=== PATIENT | female | born 1985 | race Caucasian/White ===

== ENCOUNTER → 2016-12-05 | Outpatient (CLI) | payer OTHER ==
[~2016-12-05] MED LIST: ACET650T10 PO; GLYB2.5T3 PO; IBUP-232 PO; PERC5TAB12 PO; PREN0.01 PO; ZANTTAB11 PO
== END ==
LOC: HPND 13:07
PROVIDERS: ATTEND Obstetrics & Gynecology
DX: O35.1XX0 Maternal care for (suspected) chromosomal abnormality in fetus, not applicable or unspecified (principal)
CPT/HCPCS: 76811

== ENCOUNTER 2017-03-05 10:25 | Inpatient (IN) | payer OTHER ==
[~2017-03-05] VITALS: Ht 177.8 cm; Wt 117.9 kg
[2017-03-05] VITALS (21 sets, daily range): BP systolic 110–141; BP diastolic 63–92; PULSE 68–128; RESP 18; TEMP 97.9–98.4
[~2017-03-05 10:25] MED LIST changes: -GLYB2.5T3 PO; -IBUP-232 PO; -ZANTTAB11 PO
[2017-03-05] MEDS ORDERED: LACTATED RINGER'S 1000 ML INJ 1,000 ML IV SCH (11:26)
[2017-03-05] MEDS ORDERED: LACTATED RINGER'S 1000 ML INJ 1,000 ML IV PRN (11:26)
--- NOTE | 2017-03-05 11:26 | PD ---
HPI Chief Complaint leakage of clear fluid at 10:10a Date Seen: Mar 05, 2017 Travel History International Travel<30 Days: No Contact w/Intl Traveler<30Days: No Known Affected Area: No History of Present Illness HPI This is a 31y/o at 38w1d who presented to the [facility] with reports of leakage of clear fluid at 10:10a. Her contraction have increased in intensity at that time. She denies vaginal bleeding with reports of active movements. Her plan is to not have an epidural as she has not had one with her last [address] Sal, care complicated by: 1.GBS + 2. H/o marijuana + noted on her records. 3. GDMA2, on glyburide 2.5mg qhs. Fingersticks: fasting 90-94, 2 hr pp: 107- 118. Para: 2 : 3 History Past Medical History Medical History: Denies Significant Hx Obstetric History Obstetric History 08/02/11 40+ w c/o GDMA, Male 8lb9oz "Curry" 08/09/14 39w4d Male 8lb1oz "Neeko" Past Surgical History Narrative Surgical Tonsillectomy age 4 Family History Family History: Negative Social History Alcohol Use: No Tobacco Use: No Substance Abuse: No Allergies-Medications (Allergen,Severity, Reaction): Coded Allergies: No Known Allergies (Verified , 11/05/13) Home Meds Active Scripts Oxycodone-Acetaminophen 5-325 mg (Percocet 5-325 mg)Oxycodone 5/325 Acetaminophen Tab1-2 Tab PO Q6H PRN (PAIN GREATER THAN 5) #20 TAB Ref 0 Prov:Duy Triana MD 08/11/14 Reported Medications Acetaminophen (Acetaminophen Er)650 Mg Lbs416 Mg PO Q4H PRN (PAIN SCALE 3 TO 5) 08/09/14 Multivit/Min/Fol Ac/Iron/Pren ( Vit ( Plus)) Tab1 Tab PO DAILY 07/23/11 Review of Systems Except as stated in HPI: all other systems reviewed are Neg Physical Exam Narrative GENERAL: Well-nourished, well-developed patient. SKIN: Warm and dry. HEAD: Normocephalic and atraumatic. EYES: No scleral icterus. No injection or drainage. ENT: No nasal drainage noted. Mucous membranes pink. Airway patent. NECK: Supple, trachea midline. No JVD. CARDIOVASCULAR: Regular rate and rhythm without murmurs, gallops, or rubs. RESPIRATORY: Breath sounds equal bilaterally. No accessory muscle use. BREASTS: Bilateral exam showed no masses , no retractions, no nipple discharge. ABDOMEN/GI: Abdomen soft, non-tender, bowel sounds present, no rebound, no guarding Gravid to 38 weeks size GENITOURINARY: External Genitalia: intact and normal in appearance VE: 60/-1 Presentation: cephalic Membranes: ruptured but + forebag Uterine Contractions: q 2-3 minutes apart FHT's: Category: 1, reactive/reassuring EXTREMITIES: No cyanosis or edema. BACK: Nontender without obvious deformity. No CVA tenderness. NEUROLOGICAL: Awake and alert. Motor and sensory grossly within normal limits. Five out of 5 muscle strength in all muscle groups. Normal speech. Data Data Vital Signs Reviewed: Yes Orders Ob (2e) Additional Admit Info (03/05/17 11:07) MDM Medical Record Reviewed: Yes Narrative Course / MDM 31y/o at 38w1d with SROM, GBS + -reassuring status Plan -admit for delivery -PCN -utox -d/w Jonelle aware of admission Diagnosis Diagnosis: Primary Impression: 38 weeks gestation of Additional Impression: Rupture of membranes with clear amniotic fluid Cathy Trujillo MD Mar 05, 2017 11:26
[2017-03-05] MEDS ORDERED: LIDOCAINE HCL 1% 50 ML VIAL I-DERMAL PRN (11:30)
[2017-03-05] MEDS ORDERED: LIDOCAINE HCL 1% 50 ML VIAL INFIL PRN (11:30)
[2017-03-05] MEDS ORDERED: OXYTOCIN 30 UNITS-500ML PREMIX 500 ML IV ONE (11:30)
[2017-03-05] MEDS ORDERED: CITRIC ACID-SODIUM CITRATE LIQ 30 ML UDC PO SCH (11:30)
[2017-03-05] MEDS ORDERED: PENICILLIN G POTASSIUM INJ 5,000,000 UNITS in SODIUM CHLORIDE 0.9% INJ 100 ML IV ONE (11:30)
[2017-03-05] MEDS ORDERED: MINERAL OIL 10 ML VIAL TOPICAL PRN (11:30)
[2017-03-05] MEDS ORDERED: OXYTOCIN 30 UNITS-500ML PREMIX 500 ML IV SCH (11:30)
[2017-03-05] MEDS ORDERED: SODIUM CHLORID 0.9% 500 ML INJ 500 ML IV PRN (11:30)
[2017-03-05] MEDS ORDERED: SODIUM CHLOR 0.9% 1000 ML INJ 1,000 ML IV PRN (11:46)
[2017-03-05 12:06] LABS: AUTOMATED NEUTROPHIL # 7.9 TH/MM3 (1.8-7.7); BASOPHIL % 0.2 % (0.0-2.0); EOSINOPHIL # 0.1 TH/MM3 (0-0.4); EOSINOPHIL % 0.5 % (0.0-4.0); HEMO FLAGS DIFF FINAL; LYMPH % 25.2 % (9.0-44.0); MEAN CELL VOLUME 85.9 FL (80.0-100.0); MEAN CORPUSCULAR HEMOGLOBIN 28.1 PG (27.0-34.0); MEAN CORPUSCULAR HGB CONC 32.7 % (32.0-36.0); MONO % 7.6 % (0.0-8.0); NEUT % 66.5 % (16.0-70.0); PLATELET COUNT 183 TH/MM3 (150-450); RED BLOOD COUNT 4.07 MIL/MM3 (4.00-5.30); RED CELL DISTRIBUTION WIDTH 14.6 % (11.6-17.2); WHITE BLOOD COUNT 11.9 TH/MM3 (4.0-11.0)
[2017-03-05 12:17] LABS: BLOOD, URINE SMALL (NEG); CALCIUM OXALATE CRYSTALS,URINE RARE /hpf; COMMENT (UR) CULT NOT INDICATED; CULTURE IF INDICATED CULT NOT INDICATED; GLUCOSE,URINE NEG (NEG); KETONE, URINE NEG (NEG); MUCUS URINE FEW /lpf (OCC); NITRITE,URINE NEG (NEG); SQUAMOUS EPITHELIAL CELL URINE 2 /hpf (0-5); URINE COLOR YELLOW (YELLW/STRAW)
[2017-03-05 12:27] LABS: AMPHETAMINE, URINE NEG (NEG); BARBITURATES, URINE NEG (NEG); COCAINE, URINE NEG (NEG)
[2017-03-05] MEDS ORDERED: GLYB2.5T3 PO (12:59)
[2017-03-05] MEDS ORDERED: ZANTTAB11 PO (13:00)
--- NOTE | 2017-03-05 15:06 | PD.OB.DELI ---
Delivery Date: Mar 05, 2017 Anesthesia: None Episiotomy: None Vaginal Delivery: Normal Presentation: Occiput anterior, Vertex Nuchal Cord: None Delayed cord clamping (45 sec): Yes : Male One Minute : 9 Five Minute : 9 Weight: 7#14oz Placenta: Spontaneous delivery, Intact, 3 vessel cord Laceration: Vaginal laceration, 2 deg Repair: Chromic running Additional Information EBL 200 mL Aysha Sal MD Mar 05, 2017 15:06
[2017-03-05] MEDS ORDERED: ZOLPIDEM TARTRATE 5 MG TAB PO PRN (15:15)
[2017-03-05] MEDS ORDERED: ONDANSETRON ODT 4 MG TAB PO PRN (15:15)
[2017-03-05] MEDS ORDERED: DOCUSATE SODIUM 50 MG/SENNA 8.6 MG TAB PO PRN (15:15)
[2017-03-05] MEDS ORDERED: SODIUM CHLORIDE 0.9% FLUSH 10 ML FLUSH IV FLUSH PRN (15:15)
[2017-03-05] MEDS ORDERED: ALUMINUM/MAGNESIUM/SIMETH 30 ML CUP PO PRN (15:15)
[2017-03-05] MEDS ORDERED: oxyCODONE/ACETAMINOPHEN 5 MG/325 MG TAB PO PRN ×2 (15:15)
[2017-03-05] MEDS ORDERED: PENICILLIN G POTASSIUM INJ 2,500,000 UNITS in SODIUM CHLORIDE 0.9% INJ 100 ML IV SCH (15:30)
[2017-03-05] MEDS: ACETAMINOPHEN 325 MG TAB PO PRN (15:49)
[2017-03-05] MEDS ORDERED: MEASLES, MUMPS, RUBELLA VACCINE 0.5 ML VIAL SQ ONE (16:00)
[2017-03-05] MEDS ORDERED: DIPHTH/TETANUS/ACEL PERTUSSIS (BOOSTER) 0.5 ML VIAL/PFS IM ONE (16:00)
[2017-03-05] MEDS: BENZOCAINE 20% TOPICAL SPRAY 60 ML CAN TOPICAL PRN (16:43)
[2017-03-05] MEDS: WITCH HAZEL 50%/GLYCERIN 12.5% 40 PAD JAR TOPICAL PRN (16:43)
[2017-03-05] MEDS: IBUPROFEN 600 MG TAB PO PRN (20:41)
[2017-03-05] MEDS: SODIUM CHLORIDE 0.9% FLUSH 10 ML FLUSH IV FLUSH SCH (20:42)
[2017-03-06] MEDS: IBUPROFEN 600 MG TAB PO PRN ×2 (05:29→17:32)
[2017-03-06 08:40] VITALS: BP 110/70; PULSE 70; RESP 16; TEMP 98.3
--- NOTE | 2017-03-06 09:47 | HHI.OB ---
Subjective Post Day: 1 Remarks Doing well with nursing plans to have child circumcised at resident clinic minimal cramping Objective Vitals/I&O Vital Signs Date Time Temp Pulse Resp B/P Pulse Ox O2 Delivery O2 Flow Rate FiO2 03/05/17 20:18 98.4 78 18 119/70 03/05/17 16:34 98.3 72 18 117/76 03/05/17 16:20 98.0 18 03/05/17 16:15 128 113/86 03/05/17 16:05 18 03/05/17 16:01 83 122/81 03/05/17 15:57 83 122/78 03/05/17 15:31 18 03/05/17 15:30 92 124/73 03/05/17 15:30 18 03/05/17 15:15 93 126/80 03/05/17 15:00 91 138/86 03/05/17 14:57 93 141/92 03/05/17 14:56 18 03/05/17 14:55 98.4 03/05/17 14:30 88 125/83 03/05/17 14:00 73 137/76 03/05/17 13:51 68 131/72 03/05/17 13:00 71 110/64 03/05/17 13:00 97.9 18 03/05/17 12:54 73 113/63 03/05/17 11:54 18 03/05/17 11:52 82 131/84 Objective Remarks GENERAL: Well-nourished, well-developed patient. CARDIOVASCULAR: Regular rate and rhythm without murmurs, gallops, or rubs. RESPIRATORY: Breath sounds equal bilaterally. No accessory muscle use. ABDOMEN/GI: Abdomen soft, non-tender. Fundus: Firm, non-tender at umbilicus. GENITOURINARY: Light to moderate bleeding. EXTREMITIES: No cyanosis or edema, non-tender, without signs of DVT. Medications and IVs Current Medications Medications (Trade) Dose Ordered Sig/Adela Route Start Time Stop Time Status Last Admin (NS Flush) 2 ml BID IV FLUSH 03/05/17 21:00 03/05/17 20:42 (NS Flush) 2 ml UNSCH PRN IV FLUSH 03/05/17 15:15 (Tylenol) 650 mg Q4H PRN PO 03/05/17 15:15 6/21/17 15:49 (Motrin) 600 mg Q6H PRN PO 03/05/17 15:15 03/06/17 05:29 (Percocet 5-325 Mg) 1 tab Q4H PRN PO 03/05/17 15:15 (Percocet 5-325 Mg) 2 tab Q4H PRN PO 03/05/17 15:15 (Americaine 20% Top Spr) 1 spray Q4H PRN TOPICAL 03/05/17 15:15 03/05/17 16:43 (Tucks Pads) 1 applic QID PRN TOPICAL 03/05/17 15:15 03/05/17 16:43 (Opal-Colace) 2 tab Q12H PRN PO 03/05/17 15:15 03/05/17 20:41 (Ambien) 5 mg HS PRN PO 03/05/17 15:15 (Mag-Al Plus Susp Liq) 15 ml Q8H PRN PO 03/05/17 15:15 (Zofran Odt) 4 mg Q6H PRN PO 03/05/17 15:15 Assessment/Plan Assessment and Plan Doing well PPD 1 Discharge Planning plan for discharge in am Friday Karen Urbina MD Mar 06, 2017 09:47
[2017-03-06] MEDS: ACETAMINOPHEN 325 MG TAB PO PRN (17:32)
[2017-03-06 20:20] VITALS: BP 122/82; PULSE 78; RESP 16
[2017-03-06] MEDS: SODIUM CHLORIDE 0.9% FLUSH 10 ML FLUSH IV FLUSH SCH (20:54)
[2017-03-07] MEDS: ACETAMINOPHEN 325 MG TAB PO PRN ×2 (04:42→08:55)
[2017-03-07] MEDS: SODIUM CHLORIDE 0.9% FLUSH 10 ML FLUSH IV FLUSH SCH (07:00)
--- NOTE | 2017-03-07 08:01 | HHI.DCPOC ---
Discharge Care Plan Diagnosis: (1) Vaginal delivery Your Health Problems Are: Vaginal delivery Report Symptoms to Your Doctor -Temperature above 100.5 degrees -Redness, of incision or excessive or foul smelling drainage -Unusual pain or calf pain -Increased vaginal bleeding -Painful or difficulty urinating -Feelings of extreme sadness or anxiety after 2 weeks Goals to Promote Your Health * To prevent worsening of your condition and complications * To maintain your health at the optimal level Directions to Meet Your Goals Take your medications as prescribed Follow your dietary instruction Follow activity as directed Ensure plenty of rest for recovery Drink fluids for hydration Keep your appointments as scheduled Take your immunizations and boosters as scheduled If your symptoms worsen call your PCP, if no PCP go to Urgent Care Center or Emergency Room Smoking is Dangerous to Your Health. Avoid second hand smoke Call the 24-hour crisis hotline for domestic abuse at Nikia Shore MD Mar 07, 2017 08:01
--- NOTE | 2017-03-07 08:01 | HHI.OB ---
Subjective Post Day: 2 Remarks doing well Objective Vitals/I&O Vital Signs Date Time Temp Pulse Resp B/P Pulse Ox O2 Delivery O2 Flow Rate FiO2 03/06/17 20:20 78 16 122/82 03/06/17 08:40 98.3 70 16 110/70 Objective Remarks GENERAL: Well-nourished, well-developed patient. CARDIOVASCULAR: Regular rate and rhythm without murmurs, gallops, or rubs. RESPIRATORY: Breath sounds equal bilaterally. No accessory muscle use. ABDOMEN/GI: Abdomen soft, non-tender. Fundus: Firm, non-tender at umbilicus. GENITOURINARY: Light to moderate bleeding. EXTREMITIES: No cyanosis or edema, non-tender, without signs of DVT. Medications and IVs Current Medications Medications (Trade) Dose Ordered Sig/Adela Route Start Time Stop Time Status Last Admin (NS Flush) 2 ml BID IV FLUSH 03/05/17 21:00 03/05/17 20:42 (NS Flush) 2 ml UNSCH PRN IV FLUSH 03/05/17 15:15 (Tylenol) 650 mg Q4H PRN PO 03/05/17 15:15 03/07/17 04:42 (Motrin) 600 mg Q6H PRN PO 03/05/17 15:15 03/06/17 17:32 (Percocet 5-325 Mg) 1 tab Q4H PRN PO 03/05/17 15:15 (Percocet 5-325 Mg) 2 tab Q4H PRN PO 03/05/17 15:15 (Americaine 20% Top Spr) 1 spray Q4H PRN TOPICAL 03/05/17 15:15 03/05/17 16:43 (Tucks Pads) 1 applic QID PRN TOPICAL 03/05/17 15:15 03/05/17 16:43 (Opal-Colace) 2 tab Q12H PRN PO 03/05/17 15:15 03/05/17 20:41 (Ambien) 5 mg HS PRN PO 03/05/17 15:15 (Mag-Al Plus Susp Liq) 15 ml Q8H PRN PO 03/05/17 15:15 (Zofran Odt) 4 mg Q6H PRN PO 03/05/17 15:15 Assessment/Plan Assessment and Plan Doing well PPD 2, cont routine care Discharge Planning plan for discharge in am Friday Nikia Shore MD Mar 07, 2017 08:01
[2017-03-07] MEDS ORDERED: IBUP-232 PO (08:02)
[2017-03-07 08:57] VITALS: BP 126/80; PULSE 65; RESP 18; TEMP 97.7
[2017-03-07] MEDS: WITCH HAZEL 50%/GLYCERIN 12.5% 40 PAD JAR TOPICAL PRN (13:48)
[2017-03-07] MEDS: BENZOCAINE 20% TOPICAL SPRAY 60 ML CAN TOPICAL PRN (13:48)
[2017-03-10 08:44] LABS: BATH SALTS (MDPV) UR NEG (NEG); ECSTASY (MDMA) UR NEG (NEG); GABAPENTIN UR NEG (NEG); HEROIN (6-ACETYLMORPHINE) UR NEG (NEG); HYDROMORPHONE U NEG (NEG); K2 SPICE UR NEG (NEG); OBMETHADONE UR NEG (NEG); OXYCODONE (PERCODAN) NEG (NEG); PHENCYCLIDINE URINE NEG (NEG)
== END 2017-03-07 13:47 | disposition home or self-care (01) | DRG 774 ==
LOC: HOBED 10:25 → H2EA 11:15 → H1EA 16:37
PROVIDERS: ADMIT Obstetrics & Gynecology; ATTEND Obstetrics & Gynecology
PROC: 10E0XZZ Delivery of Products of Conception, External Approach (ICD-10-PCS; principal; 2017-03-05)
PROC: 0KQM0ZZ Repair Perineum Muscle, Open Approach (ICD-10-PCS; 2017-03-05)
DX: O24.415 Gestational diabetes mellitus in pregnancy, controlled by oral hypoglycemic drugs (principal); O99.824 Streptococcus B carrier state complicating childbirth; O70.1 Second degree perineal laceration during delivery; Z37.0 Single live birth; Z3A.38 38 weeks gestation of pregnancy
CPT/HCPCS: 80307; 81001; 82948; 84112; 85025; 90715; 99285; G0481; J2540; J2590; J7120